=== PATIENT | female | born 1990 | race African-American/Black ===

== ENCOUNTER 2021-11-07 02:53 | Emergency (ER) | payer BC, OTHER ==
[~2021-11-07] VITALS: Ht 167.6 cm; Wt 98.0 kg
[2021-11-07 02:58] VITALS: BP 115/75
== END 2021-11-07 04:04 | disposition home or self-care (01) ==
LOC: ER 02:53
DX: F12.10 Cannabis abuse, uncomplicated (principal); F41.9 Anxiety disorder, unspecified
CPT/HCPCS: 99283

== ENCOUNTER 2021-11-07 04:00 | Emergency (ER) | payer OTHER ==
[~2021-11-07] VITALS: Ht 165.1 cm; Wt 68.3 kg
[2021-11-07 04:18] VITALS: BP 118/82
[2021-11-07 05:39] LABS: BASOPHILS % 0.6 % (0.0-2.0); EOSINOPHILS % 0.1 % (0.0-5.0); HEMATOCRIT. 37.4 % (36.0-48.0); HEMOGLOBIN. 12.2 g/dL (12.0-16.0); LYMPHOCYTES % 25.6 % (20.0-50.0); MEAN CORPUSCULAR HEMOGLOBIN 30.3 pg (28.0-32.0); MEAN CORPUSCULAR VOLUME 92.6 fL (81.0-99.0); MEAN PLATELET VOLUME 9.5 fl (7.4-10.4); MONOCYTES % 11.2 % (2.0-8.0); NEUTROPHILS % 62.5 % (40.0-76.0); PLATELET 245 x1000/uL (130-400); RED BLOOD CELL COUNT 4.04 mill/uL (4.2-5.4); RED CELL DISTRIBUTION WIDTH 13.6 % (11.6-14.6)
[2021-11-07 05:46] LABS: CHLORIDE 108 mEq/L (98-107)
[2021-11-07 06:03] LABS: CLARITY URINE CLEAR (CLEAR); COLOR URINE YELLOW (YELLOW); KETONES URINE 3+ (NEGATIVE); LEUKOCYTE ESTERASE URINE NEGATIVE (NEGATIVE); NITRITE URINE NEGATIVE (NEGATIVE); OCCULT BLOOD URINE NEGATIVE (NEGATIVE); PH URINE 6.5 (4.5-8.0); PROTEIN URINE TRACE (NEGATIVE); SPECIFIC GRAVITY URINE 1.024 (1.005-1.030)
[2021-11-07 06:06] LABS: ETHANOL BLOOD < 10 mg/dL
[2021-11-07 06:16] LABS: HCG SCREEN NEGATIVE
[2021-11-07 06:21] LABS: *AMPHETAMINES SCREEN URINE NEGATIVE (NEGATIVE); *BARBITURATES SCREEN URINE NEGATIVE (NEGATIVE); *BENZODIAZEPINES SCREEN URINE NEGATIVE (NEGATIVE); *COCAINE SCREEN URINE NEGATIVE (NEGATIVE); CANNABINOID URINE SCREEN PRESUMTIVE POSITIVE (NEGATIVE); METHADONE URINE SCREEN NEGATIVE (NEGATIVE); OPIATES URINE SCREEN NEGATIVE (NEGATIVE); PHENCYCLIDINE URINE SCREEN NEGATIVE (NEGATIVE)
== END 2021-11-07 06:38 | disposition home or self-care (01) ==
LOC: ER 04:00
DX: F41.9 Anxiety disorder, unspecified (principal); F12.10 Cannabis abuse, uncomplicated
CPT/HCPCS: 36415; 80053; 80305; 80307; 80320; 80329; 81003; 82140; 84443; 84703; 85025; 99283; G0480

== ENCOUNTER 2023-12-13 22:14 | Emergency (ER) | payer MEDICAID, OTHER ==
[~2023-12-13] VITALS: Ht 167.6 cm; Wt 75.0 kg
[2023-12-13 22:51] VITALS: O2SAT 100
[2023-12-13] MEDS ORDERED: ACETAMINOPHEN 325MG TABLET PO ONE (23:00)
[2023-12-14] MEDS ORDERED: TOPUD PO (00:02)
[2023-12-14] MEDS: ACETAMINOPHEN 325MG TABLET PO NR (00:15)
[2023-12-14 00:20] VITALS: BP 128/66; PULSE 84; RESP 18; TEMP 98
== END 2023-12-14 00:20 | disposition home or self-care (01) ==
LOC: ER 22:14
DX: M25.512 Pain in left shoulder (principal); F12.10 Cannabis abuse, uncomplicated
CPT/HCPCS: 73030; 99283